=== PATIENT | male | born 1985 | race Native Hawaiian/Other Pacific Islander ===

== ENCOUNTER 2022-01-06 22:52 | Emergency (ER) | payer OTHER ==
[~2022-01-06] VITALS: Ht 175.3 cm; Wt 70.3 kg
[2022-01-06 23:47] LABS: POTASSIUM 3.6 mmol/L (3.6-5.2)
[2022-01-07 01:16] LABS: PLATELET COUNT 213 K/uL (142-355)
[2022-01-07 01:36] VITALS: BP 117/63; TEMP 99
== END 2022-01-07 01:36 | disposition home or self-care (01) ==
LOC: ED 22:52
PROVIDERS: Emergency Medicine Emergency Medical Services
DX: K02.9 Dental caries, unspecified (principal); E86.0 Dehydration
CPT/HCPCS: 36415; 80048; 83605; 85027; 96360; 96361; 96365; 99284

== ENCOUNTER 2022-01-28 16:42 | Outpatient (CLI) | payer OTHER | END 2022-01-28 19:02 | disposition home or self-care (01) | LOC: CT 16:42 | PROVIDERS: ATTEND Internal Medicine | DX: R07.9 Chest pain, unspecified (principal); R06.00 Dyspnea, unspecified; R50.9 Fever, unspecified; M79.10 Myalgia, unspecified site | CPT/HCPCS: Q9963 ==

== ENCOUNTER 2022-05-09 08:56 | Outpatient (CLI) | payer OTHER | END 2022-05-09 21:28 | disposition home or self-care (01) | LOC: MRI 08:56 | PROVIDERS: ATTEND Internal Medicine | DX: M54.2 Cervicalgia (principal); R07.89 Other chest pain; M94.0 Chondrocostal junction syndrome [Tietze]; M54.6 Pain in thoracic spine ==

== ENCOUNTER 2022-06-04 18:16 | Emergency (ER) | payer OTHER ==
[~2022-06-04] VITALS: Ht 175.3 cm; Wt 70.8 kg
[2022-06-04 18:17] VITALS: BP 138/99; TEMP 98
[2022-06-04 19:22] LABS: PLATELET COUNT 272 K/uL (142-355)
[2022-06-04 19:32] LABS: POTASSIUM 3.5 mmol/L (3.6-5.2)
== END 2022-06-04 21:14 | disposition home or self-care (01) ==
LOC: ED 18:16
PROVIDERS: Emergency Medicine Emergency Medical Services
DX: R07.89 Other chest pain (principal); J20.9 Acute bronchitis, unspecified
CPT/HCPCS: 80048; 83735; 84484; 85027; 85379; 93005; 96365; 96375; 99284; J0696; J2270; J2405

== ENCOUNTER 2023-04-28 13:02 | Outpatient (CLI) | payer OTHER | END 2023-04-28 19:00 | disposition home or self-care (01) | LOC: RAD 13:02 | PROVIDERS: ATTEND Nurse Practitioner Family | DX: E55.9 Vitamin D deficiency, unspecified (principal); E56.8 Deficiency of other vitamins; M06.4 Inflammatory polyarthropathy; M54.2 Cervicalgia; M54.51 Vertebrogenic low back pain ==

== ENCOUNTER 2023-05-29 08:28 | Outpatient (CLI) | payer OTHER | END 2023-05-29 19:44 | disposition home or self-care (01) | LOC: MRI 08:28 | PROVIDERS: ATTEND Orthopaedic Surgery Orthopaedic Surgery of the Spine | DX: M54.16 Radiculopathy, lumbar region (principal) ==